=== PATIENT | male | born 1985 | race Caucasian/White ===

== ENCOUNTER 2021-06-03 17:56 | Emergency (ER) | payer BC ==
[2021-06-03 20:04] LABS: CORONAVIRUS COVID-19 NAA NEGATIVE (NEGATIVE); INFLUENZA A NAA NEGATIVE (NEGATIVE); INFLUENZA B NAA NEGATIVE (NEGATIVE)
[2021-06-03] MEDS ORDERED: Clindamycin Phosphate in D5W 900 MG in Premix Bag 1 BAG IV ONE ×2 (20:59)
[2021-06-03] MEDS ORDERED: Dexamethasone 10 MG/ML SDV IVPUSH ONE (21:00)
[2021-06-03] MEDS ORDERED: Sodium Chloride 0.9% 1,000 ML IV ONE (21:00)
[2021-06-03 22:39] LABS: BLOOD UREA NITROGEN,BUN 15 mg/dL (7.0-18.0); CARBON DIOXIDE,CO2 30.2 mmol/L (21.0-32.0); CHLORIDE,CL 98 mmol/L (98-107); GLUCOSE RANDOM 88 mg/dL (74-106); SODIUM,NA 136 mmol/L (136-148)
[2021-06-03] MEDS ORDERED: Iopamidol 755 MG/ML 500 ML Multipack Bottle IVPUSH ONE (23:29)
[2021-06-03] MEDS ORDERED: Ibuprofen 600 MG Tab PO STA (23:45)
== END 2021-06-04 00:58 | disposition home or self-care (01) ==
LOC: MW.ED 17:56
DX: J36 Peritonsillar abscess (principal); Z79.899 Other long term (current) drug therapy; Z20.822 Contact with and (suspected) exposure to COVID-19
CPT/HCPCS: 0240U; 36415; 70491; 80048; 83605; 85025; 87651; 96365; 96375; 99284; A9270; J1100; J3490; J7030; Q9967